=== PATIENT | female | born 1985 | race Caucasian/White ===

== ENCOUNTER 2017-08-26 12:31 | Emergency (ER) | payer OTHER, MEDICAID ==
[~2017-08-26] VITALS: Ht 149.9 cm; Wt 51.7 kg
[2017-08-26] MEDS ORDERED: NORCO 5-325 TA1 EACH PO (12:42)
[2017-08-26] MEDS ORDERED: STOOL SOFT-STI1 EACH PO (12:42)
[2017-08-26] MEDS ORDERED: IRON325 PO (12:42)
[2017-08-26 13:16] LABS: ABSOLUTE EOSINOPHILS 0.4 thou/uL (0.0-0.7); ABSOLUTE LYMPHOCYTES 2.6 thou/uL (0.8-5.3); ABSOLUTE MONOCYTES 0.3 thou/uL (0.0-1.2); ABSOLUTE NEUTROPHILS 3.3 thou/uL (1.6-8.1); BASOPHILS 0.5 %; EOSINOPHILS 5.9 %; HEMATOCRIT 32.6 % (37.0-47.0); HEMOGLOBIN 11.1 gm/dL (12.0-15.0); LYMPHOCYTES 39.3 %; MCH 30.4 pg (26.0-34.0); MCHC 33.9 g/dL (28.0-37.0); MCV 89.6 fL (80.0-100.0); MONOCYTES 4.8 %; MPV 6.5 fl. (7.2-11.1); NUCLEATED RBCS 0 /100WBC; PLATELET COUNT* 269 thou/uL (150-400); POLYS 49.5 %; RBC 3.64 mil/uL (4.20-5.00); RDW-CV 13.1 % (10.5-14.5); WBC 6.7 thou/uL (4.0-11.0)
[2017-08-26 13:20] LABS: URINE BILIRUBIN NEGATIVE (Negative); URINE BLOOD TRACE (Negative); URINE CLARITY CLEAR; URINE COLOR YELLOW; URINE GLUCOSE-RANDOM NEGATIVE (Negative); URINE KETONES NEGATIVE (Negative); URINE LEUKOCYTES-REFLEX NEGATIVE (Negative); URINE NITRITE-REFLEX NEGATIVE (Negative); URINE PROTEIN NEGATIVE (Negative); URINE SPECIFIC GRAVITY <= 1.005 (1.005-1.030); URINE UROBILINOGEN 0.2 E.U./dl (0.2-1.0)
[2017-08-26 13:24] LABS: CALCIUM 8.4 mg/dL (8.5-10.1); CREATININE 0.6 mg/dL (0.6-1.3); POTASSIUM 3.2 mmol/L (3.5-5.1)
[2017-08-26 13:34] LABS: ALBUMIN 3.3 g/dL (3.4-5.0); TOTAL BILIRUBIN 0.6 mg/dL (<0.1-1.0)
[2017-08-26] MEDS ORDERED: CITRATE OF MAG296 ML PO (14:42)
[2017-08-26] MEDS ORDERED: MIRALAX17 GM PO (14:42)
[2017-08-26 15:02] VITALS: BP 105/61
== END 2017-08-26 15:03 | disposition home or self-care (01) ==
LOC: M.ERS 12:31
PROVIDERS: Physician Assistant
DX: G89.18 Other acute postprocedural pain (principal); K59.00 Constipation, unspecified